=== PATIENT | female | born 1980 | race African-American/Black ===

== ENCOUNTER 2017-04-06 00:04 | Emergency (ER) | payer OTHER ==
[2017-04-06 01:01] LABS: CALCIUM 9.2 mg/dL (8.5-10.1); CARBON DIOXIDE 28.5 mmol/L (21-32); CREATININE SERUM 1.1 mg/dL (0.6-1.0); POTASSIUM SERUM 3.7 mmol/L (3.5-5.1)
[2017-04-06 01:04] LABS: BASOPHIL % 0.4 % (0-2); PLATELET COUNT 313 x10^3mcL (130-400)
[2017-04-06 01:05] LABS: ALBUMIN 3.7 g/dL (3.4-5.0); BILIRUBIN TOTAL 0.4 mg/dL (0.20-1.00); TOTAL PROTEIN, SERUM 7.6 g/dL (6.4-8.2)
[2017-04-06 02:33] VITALS: BP 120/72
== END 2017-04-06 02:33 ==
LOC: ED 00:04
PROVIDERS: Emergency Medicine
DX: R55 Syncope and collapse (principal); Z91.012 Allergy to eggs
CPT/HCPCS: 36415